=== PATIENT | male | born 1995 | race Caucasian/White ===

== ENCOUNTER 2019-10-25 06:38 | Emergency (ER) | payer SELFPAY ==
--- NOTE | 2019-10-25 06:45 | W.ED.ABDPA2 ---
HPI - Abdominal Pain General: Chief Complaint: Abdominal Pain Stated Complaint: Groin pain Time Seen by Provider: 10/25/19 06:43 History of Present Illness: HPI narrative: 24-year-old male comes in complaining of abdominal pain thinks he may have a hernia. It began while he was doing some heavy lifting. He is not had any dysuria urgency or frequency denies penile drainage. Pain is largely in his testicles. Pain is bilateral. Associated Symptoms: Denies bloating, chills, coffee ground emesis, constipation, diarrhea, dysuria, fever(s), hematochezia, hematemesis, melena, nausea and vomiting Review of Systems Const: Denies: fever, chills, body aches, change in appetite, fatigue or malaise ENMT: Denies: throat pain, ear pain, nasal discharge or nasal congestion Card: Denies: chest pain, edema, shortness of breath on exertion or shortness of breath when lying down Resp: Denies: shortness of breath, productive cough or non-productive cough GI: Denies: abdominal pain, nausea, vomiting, vomiting blood, coffee grounds in vomit, diarrhea, constipation, bloating, blood in stool or black tarry stool : Denies: flank pain, painful urination, urinary frequency or urinary urgency Skin/Breast: Denies: rash or itching PFSH ED PFSH: Social History Smoking and tobacco status: current every day smoker Physical Exam Const: COMMON NORMALS: no apparent distress GENERAL APPEARANCE: cooperative and comfortable ORIENTATION/CONSCIOUSNESS: Yes awake, Yes oriented to person, Yes oriented to place and Yes oriented to time HENMT: COMMON NORMALS: normocephalic, head/scalp atraumatic, hearing grossly normal bilaterally and external ears normal HEAD & SCALP: normocephalic and atraumatic EXTERNAL EAR: Yes external ears normal Lymph: LYMPHATIC: no lymphadenopathy noted and no lymphedema noted Resp: COMMON NORMALS: normal respiratory effort, no retractions, no use of accessory muscles and clear to auscultation bilaterally AUSCULTATION: clear to auscultation bilaterally Cardio: COMMON NORMALS: regular rate, regular rhythm and no murmurs RATE: regular rate RHYTHM: regular rhythm GI: COMMON NORMALS: soft to palpation and no hepatosplenomegaly AUSCULTATION: Yes normoactive bowel sounds PALPATION: Yes soft, No tender, No guarding and Yes no hepatosplenomegaly : SCROTUM: Yes testes descended bilaterally and No inguinal hernia TESTES: Yes enlarged testicle(s), Yes testicular swelling, Yes testicular tenderness, No testicular mass and Yes epididymal tenderness (bilateral) Extremity: COMMON NORMALS: normal to inspection, normal capillary refill, no clubbing, cyanosis or edema, no calf tenderness and no pedal edema Neuro: SENSORIUM/ORIENTATION: Yes oriented to person, Yes oriented to place and Yes oriented to time Skin: COMMON NORMALS: no rashes or lesions noted GENERAL SKIN EXAM: no rashes or lesions noted Course Vital Signs: Vital signs: Vital Signs Temperature 98.4 F 10/25/19 06:49 Pulse Rate 70 10/25/19 08:22 Respiratory Rate 18 10/25/19 08:22 Blood Pressure 171/89 10/25/19 06:49 Pulse Oximetry 100 10/25/19 08:22 MDM - Abdominal Pain MDM Narrative: Medical decision making narrative: Ultrasound shows bilateral epididymitis consistent with physical exam started on doxycycline return if has problems GC and chlamydia are pending. Also recommend ice and ibuprofen to the scrotum patient has urinated a milligram tablets ibuprofen he also has hydrocodone he can use those in addition. Care should be taken not to take Tylenol regularly if also taking hydrocodone with acetaminophen. Lab Data: Labs: Lab Results 10/25/19 Range/Units 07:25 Urine Color Yellow (Yellow) Urine Appearance Clear (CLEAR) Urine pH 5 (5-7) Ur Specific Gravit y 1.025 (1.005-1.030) Urine Protein Neg (Negative) Urine Glucose (UA) Norm (Normal) Urine Ketones Negative (Negative) Urine Blood Neg (Negative) Urine Nitrate Negative (Negative) Urine Bilirubin Neg (NEGATIVE) Urine Urobilinogen Norm (Negative) mg/dL Ur Leukocyte Vaishali ase Negative (Negative) Discharge Plan Discharge Patient Disposition: Home, Self-Care Clinical Impression: Epididymitis Condition: Stable Prescriptions: New doxycycline hyclate 100 mg capsule 100 mg PO BID 10 Days Qty: 20 RF: 0 No Action Tylenol 325 mg Tablet 325 mg PO QID PRN (Reason: Pain) RF: 0 hydrocodone-acetaminophen 5-325 mg tablet 1 tab PO Q4H PRN (Reason: pain) Qty: 15 RF: 0 ibuprofen 800 mg tablet 800 mg PO Q8H PRN (Reason: pain) Qty: 20 RF: 0 Zofran 4 mg tablet 4 mg PO Q6H PRN (Reason: nausea and vomiting) Qty: 14 RF: 0 Discharge Orders: Discharge Order (Routine); Ordered 10/25/19 Ordered By: Kavon Izaguirre Referrals: Gemma Hall MD [Primary Care Provider] - Discharge Diet: Usual diet Discharge Activity: Increase activity as tolerated Activity Restrictions/Additional Instructions: Follow-up with your primary care doctor if not improving over the next 3 to 4 days return if significantly worsens Discharge Date/Time: 10/25/19 08:25 Coding Level of Care Code ED Disability Case Manager for Juan Jose Ratliff
[2019-10-25 06:49] VITALS: BP 171/89; PULSE 72; RESP 18; TEMP 36.9; O2SAT 100; BMI 25.0
--- NOTE | 2019-10-25 06:58 | US_ITS ---
WS: [id number] TESTICULAR ULTRASOUND HISTORY: pain swelling COMPARISON: None available. TECHNIQUE: Real-time and color Doppler imaging or utilized to perform a testicular ultrasound. Right testicle: 4.1 cm x 2.7 cm x 2.6 cm. Normal size and echogenicity. No mass or torsion. Increased vascularity throughout the testicle. Testicle is being displaced anteriorly by a very enlar ged edematous epididymis. Small circumferential complex hydrocele. Right epididymis: Markedly enlarged, edematous and hyperemic epididymis. Left testicle: 4.5 cm x 3.1 cm x 2.7 cm. Normal sized testicle with marked increased vascularity. No mass. Systolic and diastolic velocities are both evident. Small simple hydrocele. Left epididymis: Marked increased vascularity throughout an enlarged epididymis. US/US scrotum [id number] IMPRESSION: Severe bilateral epididymo-orchitis.
[2019-10-25 07:35] LABS: Add Urine Microscopic? NO
[2019-10-25 08:01] LABS: Bilirubin Urine Neg (NEGATIVE); Blood Urine Neg (Negative); Glucose Urine UA Norm (Normal); Ketones Urine Negative (Negative); Leukocyte Esterase Urine Negative (Negative); Nitrate Urine Negative (Negative); Protein Urine Neg (Negative); Specific Gravity, Urine 1.025 (1.005-1.030); Urine Appearance Clear (CLEAR); Urine Color Yellow (Yellow); Urobilinogen Urine Norm (Negative); pH Urine 5 (5-7)
[2019-10-25] MEDS: ketorolac 60 mg/2 mL INJ IM (08:16)
[2019-10-25 08:22] VITALS: PULSE 70; RESP 18; O2SAT 100
== END 2019-10-25 08:25 | disposition home or self-care (01) ==
PROVIDERS: Emergency Provider Family Medicine; Family Provider Family Medicine; PCP Family Medicine
DX: N45.1 Epididymitis (principal); N45.3 Epididymo-orchitis; F17.200 Nicotine dependence, unspecified, uncomplicated
CPT/HCPCS: 12345; 76870; 81003; 96372; 99282; 99283; J1885

== ENCOUNTER 2019-10-25 20:42 | Emergency (ER) | payer SELFPAY ==
[2019-10-25 20:50] VITALS: BP 156/106; PULSE 81; RESP 18; TEMP 37.3; O2SAT 93; BMI 23.6
--- NOTE | 2019-10-25 20:57 | US_ITS ---
WS: [id number] TESTICULAR ULTRASOUND HISTORY: bilateral scrotal pain; severe R sided swelling COMPARISON: 10/25/2019 TECHNIQUE: Real-time and color Doppler imaging or utilized to perform a testicular ultrasound. Right testicle: 4.5 cm x 3.3 cm x 2.9 cm. Normal sized testicle with mild heterogeneity. Mild increased vascularity. Diastolic velocity is not as apparent on today's examination. There is severe diffuse scrotal wall thickening which is increase d since the prior study. Small complex hydrocele. Right epididymis: Enlargement, edematous appearing epididymis with increased vascularity. Similar to the prior study. Left testicle: 4.5 cm x 2.9 cm x 2.3 cm. Normal sized testicle with marked increased vascularity. Diastolic velocity is limited. Diffuse scrotal wall thickening with marked enlargement of the epididymis. Small hydrocele. Left epididymis: Marked edematous hypervascular appearance of the epididymis without improvement. US/US scrotum [id number] IMPRESSION: 1. Interval development of severe scrotal wall thickening which has increased since the study obtained earlier on 10/25/2019 2. There is continued bilateral epididymo-orchitis. 3. Diastolic velocities are absent, new since 2019. This could be technical or related to edema or intermittent torsion. 4. Bilateral hydroceles. Small hydroceles and mildly complex on the RIGHT.
--- NOTE | 2019-10-25 20:59 | ED_ITS ---
HPI - Male Genitourinary General: Chief complaint: Abdominal Pain Stated complaint: N/V Time Seen by Provider: 10/25/19 20:47 Source: patient Mode of arrival: ambulatory Limitations: no limitations History of Present Illness: HPI Narrative: Patient is a very nice 24-year-old male who presents to ED today with worsening scrotal pain. Patient was seen in our ED earlier today and diagnosed with bilateral epididymoorchitis. He had a UA performed on that visit and was discharged home on doxycycline. Patient states after the visit he did quite a bit of walking and has since then noticed excruciating pain. Patient reports he has had a new sexual partner over the past few weeks. He does not complain of any dysuria or penile discharge. He has not been running fevers. He states the pain is making him sick to his stomach and has vomited several times. MD Complaint: testicle pain and testicle swelling Duration: constant Location: right testicle and left testicle Severity scale (1-10): 10 Relieving factors: none Exacerbating factors: palpation and movement Associated symptoms: Reports no associated symptoms, nausea and vomiting; Deny dysuria or hematuria Review of Systems General: Reports: 10 or more systems reviewed and unremarkable except in HPI and below Const: Denies: fever, chills or body aches GI: Reports: nausea and vomiting; Denies: abdominal pain, vomiting blood, diarrhea, change in bowel habits, rectal swelling, change in stool character, blood in stool, black tarry stool, mucus in stool or white/light colored stool : Reports: testicular pain and scrotal swelling; Denies: flank pain, difficulty urinating, painful urination, urinary frequency, urinary urgency, urinary hesitancy or blood in urine Musc: Denies: neck pain or back pain Skin/Breast: Denies: rash, sores or new lesion Neuro: Denies: headache, numbness in extremities, weakness in extremities or changes in sensation PFSH ED PFSH: Social History Smoking and tobacco status: current every day smoker Physical Exam Const: COMMON NORMALS: average body habitus, oriented x3, no limitations, healthy appearing, alert and well nourished GENERAL APPEARANCE: cooperative and in distress (pt appears extremely uncomforable due to pain) Resp: COMMON NORMALS: normal respiratory effort and clear to auscultation bilaterally AUSCULTATION: clear to auscultation bilaterally Cardio: COMMON NORMALS: regular rate and regular rhythm RATE: regular rate RHYTHM: regular rhythm GI: COMMON NORMALS: normal to inspection, nondistended, normoactive bowel sounds, soft to palpation, non-tender, no hepatosplenomegaly and no masses PALPATION: Yes soft and Yes no hepatosplenomegaly : PENIS: normal penis and uncircumcised MEATUS: meatus normal OTHER: pt with extremely swollen and tender bilateral testes R>L; epididymis bilaterally is TTP; scotum is not erythematous or overly warm to touch Neuro: COMMON NORMALS: oriented x3 SENSORIUM/ORIENTATION: Yes alert Course Vital Signs: Vital signs: Vital Signs Temperature 99.1 F 10/25/19 20:50 Pulse Rate 92 10/25/19 22:02 Respiratory Rate 18 10/25/19 22:02 Blood Pressure 170/98 10/25/19 22:02 Pulse Oximetry 96 10/25/19 22:02 MDM - Male MDM Narrative: Medical decision making narrative: Patient feels much better after IV pain and nausea medications. There is no abscess or torsion on his ultrasound. Discussed how it is imperative that he must rest, elevate, and ice his scrotum. He was given Rocephin and azithromycin here and will be encouraged to continue his doxycycline as prescribed. We will try to get him close follow- up with urology. Strict return to ED precautions given. Imaging Data: US scrotum: My impression: Calvin D- no torsion, findings consistent with epididymoorchitis (worse since this AM) Discharge Plan Discharge Patient Disposition: Home, Self-Care Clinical Impression: Epididymo-orchitis without abscess Condition: Stable Prescriptions: New hydrocodone-acetaminophen 5-325 mg tablet 1 tab PO Q4H PRN (Reason: pain) Qty: 15 RF: 0 ibuprofen 800 mg tablet 800 mg PO Q8H PRN (Reason: pain) Qty: 20 RF: 0 Zofran 4 mg tablet 4 mg PO Q6H PRN (Reason: nausea and vomiting) Qty: 14 RF: 0 No Action Tylenol 325 mg Tablet 325 mg PO QID PRN (Reason: Pain) RF: 0 doxycycline hyclate 100 mg capsule 100 mg PO BID 10 Days Qty: 20 RF: 0 Discharge Orders: Discharge Order (Routine); Ordered 10/25/19 Ordered By: Prachi Lucia Referrals: Gemma Hall MD [Primary Care Provider] - Discharge Diet: Usual diet Patient Instructions: Epididymo-orchitis, Epididymo-orchitis (ED) Activity Restrictions/Additional Instructions: As discussed you must rest over the next week. You need to be wearing extremely supportive/tight underwear to help support and elevate your scrotum. Continue taking your doxycycline as directed. Elevate the scrotum and legs above the level of your heart as much as possible. Ice the scrotum for 15 to 20 minutes every hour (do not apply ice directly to the scrotum). Case management should contact you to follow-up with urology. Return to the emergency department for worsening uncontrollable pain, fevers greater than 100.4, or any other concerns you may have. I have written you for pain and nausea medications to help. Stand Alone Forms: Work/School Release Discharge Date/Time: 10/25/19 22:05 Coding Level of Care Code ED Health Information Manager for Juan Jose Ratliff
[2019-10-25] MEDS: sodium chloride 0.9% 1,000 ML 999 ML IV (21:26)
[2019-10-25] MEDS: ondansetron 2 mg/ML SDV 2 mL 4 MG IVP (21:26)
[2019-10-25] MEDS: morphine 4 mg/mL SDV 1 mL IVP (21:26)
[2019-10-25] MEDS: azithromycin 250 mg Tablet 1000 MG PO (21:27)
[2019-10-25] MEDS: HYDROcodone-acetaminophen 5-325 mg Tablet 2 TAB PO (21:53)
[2019-10-25] MEDS: ondansetron 4 MG Tablet PO (21:53)
[2019-10-25 22:02] VITALS: BP 170/98; PULSE 92; RESP 18; O2SAT 96
--- NOTE | 2019-10-25 22:09 | PC.NURSE ---
Patient IV removed intact prior to discharge, patient tolerated well
--- NOTE | 2019-10-26 11:33 | DCPLANNER ---
regional manager had message to schedule a follow up appointment for patient with Dr. Farrar. regional manager called the office of Dr. Farrar, spoke with Irina, gave clinic patients information. regional manager was told that patients information would be printed and given to Guerita for review. Clinic will call patient with appointment information. regional manager will call for appointment information.
--- NOTE | 2019-11-02 11:21 | DCPLANNER ---
Patient had a follow up appointment scheduled for patient for 10.30.[address] Farrar. Patient did attend the appointment.
== END 2019-10-25 22:05 | disposition home or self-care (01) ==
PROVIDERS: Emergency Provider Physician Assistant; Family Provider Family Medicine; PCP Family Medicine
DX: N45.3 Epididymo-orchitis (principal); F17.200 Nicotine dependence, unspecified, uncomplicated
CPT/HCPCS: 12345; 76870; 96361; 96372; 96374; 96375; 99282; 99284; J0696; J2001; J2270; J2405; J7030; Q0144; Q0162

== ENCOUNTER → 2019-11-09 08:06 | Outpatient (BNVA) | payer SELFPAY | PROVIDERS: Family Provider Family Medicine; PCP Family Medicine; Visit Provider Urology | DX: N45.3 Epididymo-orchitis (principal) | CPT/HCPCS: 81001 ==

== ENCOUNTER 2021-11-23 21:51 | Emergency (ER) | payer SELFPAY ==
--- NOTE | 2021-11-23 21:53 | USR_ITS ---
PROCEDURE INFORMATION: Exam: US Scrotum Exam date and time: 11/23/2021 10:39 PM Age: 26 years old Clinical indication: Scrotum pain TECHNIQUE: Imaging protocol: Real-time ultrasound of the scrotum and contents with color Doppler and image documentation. COMPARISON: US scrotum [id number] 10/25/2019 9:25 PM FINDINGS: Right testicle: Right testicle is 5.3 x 3.5 x 3.3 cm. . Normal right testicular blood flow and echogenicity. Left testicle: Left testicle is 5.1 x 3.3 x 3.2 cm . Normal left testicular blood flow and echogenicity. Epididymides: There is hyperemia of the left epididymis with mild enlargement of the epididymis and heterogeneous echogenicity. Scrotum: Moderate right hydrocele. Moderate left hydrocele. There is left-sided scrotal skin thickening. US/US scrotum [id number] IMPRESSION: Left-sided epididymitis and associated scrotal skin thickening. Moderate bilateral hydroceles.
[2021-11-23 22:07] VITALS: BP 169/70; PULSE 92; RESP 28; TEMP 37.3; O2SAT 99; BMI 27.1
[2021-11-23] MEDS: HYDROcodone-acetaminophen 7.5-325 mg Tablet 1 TAB PO (22:30)
--- NOTE | 2021-11-23 22:41 | ED_ITS ---
HPI - Male Genitourinary General: Chief complaint: Urogenital-Male Stated complaint: Swollen Testicle Time Seen by Provider: 11/23/21 22:13 Source: patient Mode of arrival: ambulatory Limitations: no limitations History of Present Illness: 26-year-old male states been having left testicle pain and swelling over the last 3 days. States pain is sharp in nature rates it a 9 out of 10 worse with movement palpation improved with rest. He states he has had epididymitis in the past due to an STD denies any penile discharge denies any vomiting or diarrhea. Associated symptoms: Deny nausea or vomiting Review of Systems Const: Denies: fever(s), chills, body aches or change in appetite Eyes: Denies: blurry vision or eye discomfort ENMT: Denies: throat pain or dental pain Card: Denies: chest pain Resp: Denies: dyspnea GI: Denies: abdominal pain, nausea, vomiting or diarrhea : Reports: testicular pain Musc: Denies: neck pain or back pain Skin/Breast: Denies: rash Neuro: Denies: headache(s) Psych: Denies: depression David/Lymph: Denies: easy bruising All/Imm: Denies: urticaria PFSH ED PFSH: Medical History Epididymoorchitis Surgical History [place] teeth extracted Social History Alcohol intake: current Alcohol intake frequency: holidays/special occasions only Marital status: Single Current occupational status: employed 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 History of recent travel: No Physical Exam Const: COMMON NORMALS: no acute distress, patient oriented x3 and healthy appearing HENMT: COMMON NORMALS: normocephalic and atraumatic HEAD & SCALP: normocephalic and atraumatic Eye: COMMON NORMALS: Equal, round and reactive pupils present and EOMs intact bilaterally PUPIL: Yes Equal, round and reactive pupils present Neck/C-Spine: COMMON NORMALS: full ROM and supple Chest: COMMONS NORMALS: normal inspection of the chest and normal palpation of entire chest wall Resp: COMMON NORMALS: normal respiratory effort, No retractions, No use of accessory muscles and clear to auscultation bilaterally AUSCULTATION: clear to auscultation bilaterally Cardio: COMMON NORMALS: regular rate, regular rhythm and No murmurs present (Cardio) RATE: regular rate RHYTHM: regular rhythm GI: COMMON NORMALS: Normal to inspection, nondistended, normoactive bowel sounds present, Soft to palpation, non-tender and no masses PALPATION: Yes Soft to palpation : OTHER: Tenderness to left testicle Extremity: COMMON NORMALS: normal to inspection and full ROM Neuro: COMMON NORMALS: patient oriented x3, moves all extremities and no focal motor deficits Psych: COMMON NORMALS: mental status grossly normal, Normal thought process present and cooperative THOUGHT PROCESS: Normal thought process present Skin: COMMON NORMALS: no rashes or lesions noted and no wounds GENERAL SKIN EXAM: no rashes or lesions noted Course Vital Signs: Vital signs: Vital Signs Temperature 99.2 F 11/23/21 22:07 Pulse Rate 92 11/23/21 22:07 Respiratory Rate 28 H 11/23/21 22:07 Blood Pressure 169/70 11/23/21 22:07 Pulse Oximetry 99 11/23/21 22:07 MDM - Male Medical Decision Making Patient presents here with left testicle pain ultrasound consistent epididymitis we will treat him with antibiotics patient given Rocephin azithromycin here will prescribe doxycycline along with pain meds for home he is to follow-up with urology return if worsening. Lab Data Radiology Impressions Scrotum Ultrasound 11/23/21 21:53 IMPRESSION: Left-sided epididymitis and associated scrotal skin thickening. Moderate bilateral hydroceles. ADDENDUM: 11/23/21 1028 THIS REPORT CONTAINS FINDINGS THAT MAY BE CRITICAL TO PATIENT CARE. The findings were verbally communicated by me to ANGELES LIN via telephone conference at 11:42 PM CDT on 11/23/2021. The findings were acknowledged and understood. Discharge Plan Discharge Patient Disposition: Home Clinical Impression: Epididymitis Condition: Stable Prescriptions: New hydrocodone-acetaminophen 5-325 mg tablet 1 tab PO Q6H PRN (Reason: pain) Qty: 14 0RF ondansetron 4 mg tablet,disintegrating 4 mg PO Q6H PRN (Reason: nausea and vomiting) Qty: 14 0RF doxycycline hyclate 100 mg tablet 100 mg PO BID 10 Days Qty: 20 0RF No Action doxycycline hyclate 100 mg capsule 100 mg PO BID 10 Days Qty: 20 1RF Tylenol 325 mg Tablet 325 mg PO QID PRN (Reason: Pain) 0RF ibuprofen 800 mg tablet 800 mg PO Q8H PRN (Reason: pain) Qty: 20 0RF Zofran 4 mg tablet 4 mg PO Q6H PRN (Reason: nausea and vomiting) Qty: 14 0RF Discharge Orders: Discharge ED (Routine); Ordered 11/23/21 Ordered By: Angeles Lin Referrals: Gemma Hall MD [Primary Care Provider] - Mau Farrar MD [Physician] - 1-3 days Discharge Diet: Advance as tolerated Discharge Activity: Resume usual activity Patient Instructions: Epididymitis (ED), Opioid Safety Coding Level of Care Code ED Power Saw Operator for Chg Fwd Exam Comprehensive
[2021-11-23] MEDS: azithromycin 250 mg Tablet 1000 MG PO (23:58)
[2021-11-24 00:26] VITALS: BP 160/88; PULSE 90; RESP 20; O2SAT 98
--- NOTE | 2021-11-24 15:02 | DCPLANNER ---
Addendum entered by Luna Jackson 12/11/21 08:20: Guerita from the urology clinic contacted case management director stating that the clinic has tried numerous times to reach patient to schedule appointment and has been unable to reach patient. Original Note: customer services manager had message to schedule a follow up appointment for patient with urology. customer services manager sent patients information to the front office staff at urology. Patients information will be printed and reviewed. Clinic will call patient with appointment information.
== END 2021-11-24 00:27 | disposition home or self-care (01) ==
PROVIDERS: Emergency Provider Emergency Medicine; PCP Family Medicine
DX: N45.1 Epididymitis (principal)
CPT/HCPCS: 76870; 96372; 99282; J0696; Q0144

== ENCOUNTER 2022-07-19 16:04 | Emergency (ER) | payer BC, MEDICAID, SELFPAY | END 2022-07-19 16:21 | disposition left against medical advice (07) | PROVIDERS: Emergency Provider Family Medicine; PCP Family Medicine | DX: Z53.21 Procedure and treatment not carried out due to patient leaving prior to being seen by health care provider (principal) | CPT/HCPCS: 73130; 99283 ==

== ENCOUNTER 2024-12-02 01:47 | Emergency (ER) | payer BC, MEDICAID, SELFPAY ==
[2024-12-02 01:55] VITALS: BP 131/86; PULSE 77; RESP 18; TEMP 36.8; O2SAT 100; BMI 25.1
[2024-12-02 03:23] LABS: Basophils # 0.1 10^3/uL (0.0-0.1); Basophils % 0.5 %; Eosinophils % 0.2 %; Hematocrit 52.8 % (37-53); Lymphocytes # 2.4 10^3/uL (0.8-4.8); Lymphocytes % 17.4 %; Mean Corpuscular HGB Conc 32.8 g/dL (30-55); Mean Corpuscular Hemoglobin 28.4 pg (27-33); Mean Corpuscular Volume 86.6 fl (82-101); Mean Platelet Volume 10.9 fL (7.4-10.4); Monocytes # 1.2 10^3/uL (0.2-0.9); Monocytes % 8.9 %; Neutrophils # 10.09 10^3/uL (1.8-7.7); Neutrophils % 72.6 %; Nucleated Red Blood Cells % 0 %; Platelet Count 338 10^3/cmm (157-399); Red Cell Distribution Width 12.5 % (12.1-15.1); White Blood Count 13.89 10^3/uL (3.29-11.43)
[2024-12-02 03:40] LABS: Anion Gap 17.1 (5-19); Blood Urea Nitrogen 16 mg/dL (6-20); Calcium 10.2 mg/dL (8.5-10.5); Carbon Dioxide 31 mmol/L (22-29); Chloride 94 mmol/L (98-107); Creatinine Clr Calc Pharmacy 111.0579; Glomerular Filtration Rate 80.3 mL/min (90-130); Glucose 107 mg/dL (65-115); Lipase 26 U/L (13-60); Osmolality Calculated 288 mOsm/kg (285-295); Potassium 4.1 mmol/L (3.5-5.1); Sodium 138 mmol/L (136-145)
[2024-12-02 03:49] LABS: Alanine Aminotransferase 43 U/L (0-41); Albumin Level 5.4 g/dL (3.5-5.2); Alkaline Phosphatase 106 U/L (40-130); Aspartate Amino Transferase 26 U/L (0-40); Globulin 2.9 g/dL (1.3-4.6); Total Bilirubin 0.9 mg/dL (0.15-1.2); Total Protein 8.3 g/dL (6.6-8.7)
[2024-12-02 04:08] VITALS: BP 126/93; PULSE 64; RESP 16; O2SAT 100
--- NOTE | 2024-12-02 04:18 | XRR_ITS ---
PROCEDURE INFORMATION: Exam: XR Abdomen Exam date and time: 12/02/2024 4:33 AM Age: 29 years old Clinical indication: Nausea and vomiting; Abdominal pain; Generalized; Diffuse abd pain with n/v TECHNIQUE: Imaging protocol: Radiologic exam of the abdomen. Views: Frontal supine view of the abdomen. 1 View. COMPARISON: No relevant prior studies available. FINDINGS: Gastrointestinal tract: Normal. No bowel dilation. Bones/joints: Unremarkable. XR/XR KUB portable [id number] IMPRESSION: No acute findings.
[2024-12-02 04:27] LABS: Bilirubin Urine Negative (Negative); Blood Urine Negative (Negative); Glucose Urine UA Negative (Normal); Ketones Urine Trace (Negative); Leukocyte Esterase Urine Trace (Negative); Nitrate Urine Negative (Negative); Protein Urine 1+ (Negative); Specific Gravity, Urine 1.027 (1.005-1.030); Urine Appearance Clear (CLEAR); Urine Color Dark Yellow (Yellow)
[2024-12-02 04:32] LABS: Add Urine Microscopic? YES; Bacteria Urine None Seen /hpf; Hyaline Casts Urine 4.11 /lpf; RBC Urine 0-2 /hpf (0-2); Squamous Epithelial Cell Urine 0-5 /hpf (0-5); WBC Urine 0-5 /hpf (0-5)
[2024-12-02 04:37] LABS: Add Urine Culture? No
[2024-12-02] MEDS: sodium chloride 0.9% 1,000 ML 999 ML IV (04:47)
[2024-12-02] MEDS: ketorolac 30 mg/mL INJ IVP (04:47)
[2024-12-02] MEDS: ondansetron 2 mg/ML SDV 2 mL 4 MG IVP (04:47)
[2024-12-02] MEDS: metoclopramide 5 mg/mL SDV 2 mL 10 MG IVP (04:47)
[2024-12-02 05:54] VITALS: BP 136/79; PULSE 66; RESP 16; O2SAT 99
--- NOTE | 2024-12-02 06:10 | ED_ITS ---
HPI - Abdominal Pain 2 General: Chief Complaint: Abdominal Pain Stated Complaint: ABD pain not able to hold down food 4+ days Time Seen by Provider: 12/02/24 04:02 History of Present Illness: Healthy 29 year old male here with vomiting for the last four days on and off. He's even been vomiting liquids he says. No diarrhea. No fever. No respiratory symptoms. No history of abdominal surgery. No sick contact. Related Data Home Medications ?Medication ?Instructions ?Recorded ?Confirmed acetaminophen 325 mg tablet 325 mg PO QID PRN Pain 09/1307/19/22 (Tylenol) Previous Rx's ?Medication ?Instructions ?Recorded ibuprofen 800 mg tablet 800 mg PO Q8H PRN pain #20 t abs 10/25/19 sulfamethoxazole 800 1 tab PO BID 7 days #14 tabs 07/19/22 mg-trimethoprim 160 mg tablet (Bactrim DS) ondansetron 4 mg disintegrating 4 mg PO Q6H PRN nausea and 12/02/24 tablet vomiting #14 tabs Allergies Allergy/AdvReac Type Severity Reaction Status Date / Time No Known Allergies Allergy Verified 07/19/22 17:18 PFS ED 2 PFSH: Medical History Epididymoorchitis Surgical History Ethel teeth extracted Social History Alcohol intake: current Alcohol intake frequency: holidays/special occasions only Marital status: Single Current occupational status: employed 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 Physical Exam 2 Const: COMMON NORMALS: no acute distress GENERAL APPEARANCE: cooperative; not ill appearing and not frail appearing HENMT: COMMON NORMALS: normocephalic, atraumatic and Normal external nose present HEAD & SCALP: normocephalic and atraumatic FACE & SINUS: normal facial exam and face symmetric NOSE: Normal external nose present Eye: COMMON NORMALS: Equal, round and reactive pupils present and EOMs intact bilaterally PUPIL: Yes Equal, round and reactive pupils present Neck/C-Spine: GENERAL: Yes trachea midline Chest: CHEST: Yes Symmetrical chest wall rise Resp: COMMON NORMALS: normal respiratory effort, No retractions, No use of accessory muscles and clear to auscultation bilaterally AUSCULTATION: clear to auscultation bilaterally Cardio: COMMON NORMALS: regular rate and regular rhythm RATE: regular rate RHYTHM: regular rhythm GI: COMMON NORMALS: Normal to inspection, nondistended, normoactive bowel sounds present Extremity: COMMON NORMALS: no pedal edema Neuro: WING COMA SCALE: document GCS findings [place] coma scale eye opening: Spontaneous Wing coma scale verbal response: Orientated Wing coma scale motor response: Obey commands Wing coma scale total score: 15 S ENSORY EXAM: Yes extremities (intact) Psych: COMMON NORMALS: speech normal SPEECH: Yes normal speech Skin: COMMON NORMALS: no rashes or lesions noted GENERAL SKIN EXAM: no rashes or lesions noted Course 2 Vital Signs: Vital signs: Vital Signs Temperature 98.3 F 12/02/24 01:55 Pulse Rate 66 12/02/24 05:54 Respiratory Rate 16 12/02/24 05:54 Blood Pressure 136/79 12/02/24 05:54 Pulse Oximetry 99 12/02/24 05:54 Oxygen Delivery Me thod Room Air 12/02/24 04:08 MDM - Abdominal Pain Medical Decision Making Benign abdominal exam. Vitals are stable. He is improved after fluids, Zofran. White blood cell count is 14, but without significant left shift. CRP is 3. Urinalysis is negative. Lipase is 26. Liver enzymes are essentially normal. BMP is normal as well. Abdominal X-ray is non acute. With improvement in his symptoms, he'll be allowed at home with symptom control. To return if worsening. Lab Data 12/02/24 03:18 12/02/24 03:18 Labs/Radiology: Radiology Impressions KUB X-Ray 12/02/24 04:18 IMPRESSION: No acute findings. Laboratory Results WBC 13.89 10^3/uL (3.29-11.43) H 12/02/24 03:18 RBC 6.10 10^6/uL (3.85-5.65) H 12/02/24 03:18 Hgb 17.30 g/dL (11.27-16.99) H 12/02/24 03:18 Hct 52.8 % (37-53) 12/02/24 03:18 MCV 86.6 fl (82-101) 12/02/24 03:18 MCH 28.4 pg (27-33) 12/02/24 03:18 MCHC 32.8 g/dL (30-55) 12/02/24 03:18 RDW 12.5 % (12.1-15.1) 12/02/24 03:18 Plt Count 338 10^3/cmm (157-399) 12/02/24 03:18 MPV 10.9 fL (7.4-10.4) H 12/02/24 03:18 Neut % (Auto) 72.6 % 12/02/24 03:18 Lymph % (Auto) 17.4 % 12/02/24 03:18 Tyler % (Auto) 8.9 % 12/02/24 03:18 Eos % (Auto) 0.2 % 12/02/24 03:18 Baso % (Auto) 0.5 % 12/02/24 03:18 Neut # (Auto) 10.09 10^3/uL (1.8-7.7) H 12/02/24 03:18 Lymph # (Auto) 2.4 10^3/uL (0.8-4.8) 12/02/24 03:18 Tyler # (Auto) 1.2 10^3/uL (0.2-0.9) H 12/02/24 03:18 Eos # (Auto) 0.0 10^3/uL (0.0-0.8) 12/02/24 03:18 Baso # (Auto) 0.1 10^3/uL (0.0-0.1) 12/02/24 03:18 Nucleated RBC % (auto) 0 % 12/02/24 03:18 Nucleated RBCs # 0.0 /100WBC 12/02/24 03:18 Sodium 138 mmol/L (136-145) 12/02/24 03:18 Potassium 4.1 mmol/L (3.5-5.1) 12/02/24 03:18 Chloride 94 mmol/L (98-107) L 12/02/24 03:18 Carbon Dioxide 31 mmol/L (22-29) H 12/02/24 03:18 Anion Gap 17.1 (5-19) 12/02/24 03:18 BUN 16 mg/dL (6-20) 12/02/24 03:18 Creatinine 1.1 mg/dL (0.7-1.2) 12/02/24 03:18 GFR Calculation 80.3 mL/min (90-130) L 12/02/24 03:18 Glucose 107 mg/dL (65-115) 12/02/24 03:18 Calculated Osmolality 288 mOsm/kg (285-295) 12/02/24 03:18 Calcium 10.2 mg/dL (8.5-10.5) 12/02/24 03:18 Total Bilirubin 0.9 mg/dL (0.15-1.2) 12/02/24 03:18 Direct Bilirubin 0.20 mg/dL (0.00-0.30) 12/02/24 03:18 AST 26 U/L (0-40) 12/02/24 03:18 ALT 43 U/L (0-41) H 12/02/24 03:18 Alkaline Phosphatase 106 U/L (40-130) 12/02/24 03:18 C-Reactive Protein 3.0 mg/L (0.0-4.9) 12/02/24 03:18 Total Protein 8.3 g/dL (6.6-8.7) 12/02/24 03:18 Albumin 5.4 g/dL (3.5-5.2) H 12/02/24 03:18 Globulin 2.9 g/dL (1.3-4.6) 12/02/24 03:18 Lipase 26 U/L (13-60) 12/02/24 03:18 Urine Color Dark yellow (Yellow) A 12/02/24 04:13 Urine Appearance Clear (CLEAR) 12/02/24 04:13 Urine pH 6.0 (5-7) 12/02/24 04:13 Ur Specific Tat[place] 1.027 (1.005-1.030) 12/02/24 04:13 Urine Protein 1+ (Negative) A 12/02/24 04:13 Urine Glucose (UA) Negative (Normal) 12/02/24 04:13 Urine Ketones Trace (Negative) 12/02/24 04:13 Urine Blood Negative (Negative) 12/02/24 04:13 Urine Nitrate Negative (Negative) 12/02/24 04:13 Urine Bilirubin Negative (Negative) 12/02/24 04:13 Urine Urobilinogen 2.0 mg/dL (Negative) H 12/02/24 04:13 Ur Leukocyte Esterase Trace (Negative) A 12/02/24 04:13 Urine RBC 0-2 /hpf (0-2) 12/02/24 04:13 Urine WBC 0-5 /hpf (0-5) 12/02/24 04:13 Ur Squamous Epith Cells 0-5 /hpf (0-5) 12/02/24 04:13 Amorphous Sediment Not Reportable 12/02/24 04:13 Urine Bacteria None seen /hpf (NONE) 12/02/24 04:13 Hyaline Casts 4.11 /lpf 12/02/24 04:13 All radiology interpretation(s) finalized by discharge Discharge Plan Discharge Patient Disposition: Home Clinical Impression: Gastroenteritis Condition: Stable Prescriptions: Continued ondansetron 4 mg tablet,disintegrating 4 mg PO Q6H PRN (Reason: nausea and vomiting) Qty: 14 0RF No Action sulfamethoxazole-trimethoprim [Bactrim DS] 800-160 mg tablet 1 tab PO BID 7 Days Qty: 14 0RF Tylenol 325 mg Tablet 325 mg PO QID PRN (Reason: Pain) ibuprofen 800 mg tablet 800 mg PO Q8H PRN (Reason: pain) Qty: 20 0RF Discharge Orders: Discharge ED (Routine); Ordered 12/02/24 Ordered By: Pee Moore Referrals: Gemma Hall MD [Primary Care Provider, [facility]] - 1-3 days Patient Instructions: Gastroenteritis (ED), Opioid Safety, Pain Management Activity Restrictions/Additional Instructions: Take nausea medication scheduled every 4 hours while awake for the first 48 hours, then as needed following. Follow a clear liquid diet for the first 12 hours, advance as tolerated if no vomiting. Return for any problems. See your doctor next week. Print Language: Wallisian Coding Level of Care Code ED Allergy And Immunology Chief for Juan Jose Ratliff
== END 2024-12-02 05:56 | disposition home or self-care (01) ==
PROVIDERS: Emergency Provider Emergency Medicine; PCP Family Medicine
DX: K52.9 Noninfective gastroenteritis and colitis, unspecified (principal)
CPT/HCPCS: 36415; 74018; 80048; 80076; 81001; 83690; 85025; 86140; 96374; 96375; 99284; J1885; J2405; J2765; J7030